=== PATIENT | male | born 2000 | race Caucasian/White ===

== ENCOUNTER 2022-08-29 23:15 | Emergency (ER) | payer BC, OTHER ==
[2022-08-30] MEDS ORDERED: KETOROLAC 30 MG/ML VIAL IVP STA (00:39)
[2022-08-30] MEDS ORDERED: LACTATED RINGERS 1,000 ML IV ONE (00:45)
[2022-08-30] MEDS ORDERED: ONDANSETRON 4 MG/2 ML (SDV) Z0FRAN IVP ONE (00:45)
[2022-08-30 00:49] LABS: BASOPHILS % (AUTO) 0 % (0-10); EOSINOPHILS % (AUTO) 0 % (0-10); HEMATOCRIT 45 % (40-54); HEMOGLOBIN 15.3 g/dL (13.3-17.7); LYMPHOCYTES # (AUTO) 0.6 10^3/uL (1.0-4.0); LYMPHOCYTES % (AUTO) 4 % (12-44); MEAN CORPUSCULAR HEMOGLOBIN 29 pg (25-34); MEAN CORPUSCULAR HGB CONC 34 g/dL (32-36); MEAN CORPUSCULAR VOLUME 84 fL (80-99); MEAN PLATELET VOLUME 10.5 fL (9.0-12.2); MONOCYTES # (AUTO) 0.4 10^3/uL (0.0-1.0); MONOCYTES % (AUTO) 3 % (0-12); NEUTROPHILS # (AUTO) 12.2 10^3/uL (1.8-7.8); NEUTROPHILS % (AUTO) 93 % (42-75); PLATELET COUNT 230 10^3/uL (130-400); WHITE BLOOD COUNT 13.1 10^3/uL (4.3-11.0)
[2022-08-30 00:57] LABS: BILIRUBIN,URINE NEGATIVE (NEGATIVE); CLARITY,URINE CLEAR; COLOR,URINE YELLOW; GLUCOSE, URINE (UA) NEGATIVE (NEGATIVE); KETONES,URINE 2+ (NEGATIVE); LEUKOCYTE ESTERASE ,URINE NEGATIVE (NEGATIVE); NITRITE,URINE NEGATIVE (NEGATIVE); PROTEIN,URINE 1+ (NEGATIVE)
[2022-08-30 01:00] LABS: CHLORIDE 104 MMOL/L (98-107); SODIUM 137 MMOL/L (135-145)
[2022-08-30 01:01] LABS: AMYLASE 47 U/L (25-125)
[2022-08-30 01:02] LABS: CALCIUM 9.5 MG/DL (8.5-10.1)
[2022-08-30 01:03] LABS: GLUCOSE 126 MG/DL (70-105)
[2022-08-30 01:04] LABS: CARBON DIOXIDE 19 MMOL/L (21-32)
[2022-08-30 01:05] LABS: BILIRUBIN,TOTAL 0.5 MG/DL (0.1-1.0)
[2022-08-30 01:06] LABS: ALKALINE PHOSPHATASE 75 U/L (40-136); CREATININE SERUM 1.12 MG/DL (0.60-1.30); GFR ESTIMATED 95
[2022-08-30 01:07] LABS: BUN/CREATININE RATIO 18
[2022-08-30 01:09] LABS: ALANINE AMINOTRANSFERASE 38 U/L (0-55)
[2022-08-30 01:10] LABS: LIPASE 23 U/L (8-78)
[2022-08-30 01:11] LABS: AMPHETAMINE SCREEN, URINE NEGATIVE (NEGATIVE); BARBITURATE SCREEN URINE NEGATIVE (NEGATIVE); BENZODIAZEPINES SCREEN URINE NEGATIVE (NEGATIVE); CANNABINOID SCREEN, URINE NEGATIVE (NEGATIVE); COCAINE SCREEN URINE NEGATIVE (NEGATIVE); METHADONE STAT NEGATIVE (NEGATIVE); OPIATE SCREEN URINE NEGATIVE (NEGATIVE); OXYCODONE STAT NEGATIVE (NEGATIVE); PROPOXYPHENE STAT NEGATIVE (NEGATIVE); TRICYCLIC ANTIDEPRESSANTS SCRE NEGATIVE (NEGATIVE)
[2022-08-30 01:37] LABS: BACTERIA,URINE NEGATIVE /HPF
[2022-08-30 01:41] LABS: LYMPHOCYTES % (MANUAL) 7 %; MONOCYTES % (MANUAL) 1 %; NEUTROPHILS % (MANUAL) 92 %; RBC MORPH NORMAL
[2022-08-30] MEDS ORDERED: RX-ONDANSETRON 4 MG ODT (ZOFRAN) PPK #4 PO STA (02:38)
--- NOTE | 2022-08-30 02:43 | ED GU-Male ---
General Chief Complaint: - Reproductive Stated Complaint: LEFT SIDE PAIN/VOMITING Nursing Triage Note: PT AMB TO [facility] 2 WITH CC OF L FLANK PAIN THAT BEGAN AROUND 1700 TODAY. PT STATES HAS HAD TROUBLE URINATING SINCE. Source: patient History of Present Illness Date Seen by Provider: Aug 30, 2022 Allergies and Home Medications Allergies Coded Allergies: No Known Drug Allergies (Unverified , 08/30/22) Past Hcussys-Ugjprz-Ydxnpp Hx Patient Social History Tobacco Use?: No Substance use?: No Alcohol Use?: Yes Alcohol Frequency: Once in a while Pt feels they are or have been: No Physical Exam Vital Signs Vital Signs - First Documented 08/30/22 00:29 Pulse 90 Resp 18 B/P (MAP) 146/98 (114) Pulse Ox 98 O2 Delivery Room Air Capillary Refill : Less Than 3 Seconds Height, Weight, BMI Height: '" Weight: lbs. oz. kg; BMI Method: Progress/Results/Core Measures Suspected Sepsis SIRS Temperature: Pulse: 90 Respiratory Rate: 18 Laboratory Tests 08/30/22 00:36: White Blood Count 13.1H Blood Pressure 146 /98 Mean: 114 Laboratory Tests 08/30/22 00:36: Creatinine 1.12, Platelet Count 230, Total Bilirubin 0.5 Results/Orders Lab Results Laboratory Tests Test 08/30/22 00:36 08/30/22 00:38 Range/Units White Blood Count 13.1 H 4.3-11.0 10^3/uL Red Blood Count 5.32 4.30-5.52 10^6/uL Hemoglobin 15.3 13.3-17.7 g/dL Hematocrit 45 40-54 % Mean Corpuscular Volume 84 80-99 fL Mean Corpuscular Hemoglobin 29 25-34 pg Mean Corpuscular Hemoglobin Concent 34 32-36 g/dL Red Cell Distribution Width 13.4 10.0-14.5 % Platelet Count 230 130-400 10^3/uL Mean Platelet Volume 10.5 9.0-12.2 fL Immature Granulocyte % (Auto) 0 % Neutrophils (%) (Auto) 93 H 42-75 % Lymphocytes (%) (Auto) 4 L 12-44 % Monocytes (%) (Auto) 3 0-12 % Eosinophils (%) (Auto) 0 0-10 % Basophils (%) (Auto) 0 0-10 % Neutrophils # (Auto) 12.2 H 1.8-7.8 10^3/uL Lymphocytes # (Auto) 0.6 L 1.0-4.0 10^3/uL Monocytes # (Auto) 0.4 0.0-1.0 10^3/uL Eosinophils # (Auto) 0.0 0.0-0.3 10^3/uL Basophils # (Auto) 0.0 0.0-0.1 10^3/uL Immature Granulocyte # (Auto) 0.0 0.0-0.1 10^3/uL Neutrophils % (Manual) 92 % Lymphocytes % (Manual) 7 % Monocytes % (Manual) 1 % Blood Morphology Comment NORMAL Sodium Level 137 135-145 MMOL/L Potassium Level 4.0 3.6-5.0 MMOL/L Chloride Level 104 98-107 MMOL/L Carbon Dioxide Level 19 L 21-32 MMOL/L Anion Gap 14 5-14 MMOL/L Blood Urea Nitrogen 20 H 7-18 MG/DL Creatinine 1.12 0.60-1.30 MG/DL Estimat Glomerular Filtration Rate 95 BUN/Creatinine Ratio 18 Glucose Level 126 H 70-105 MG/DL Calcium Level 9.5 8.5-10.1 MG/DL Corrected Calcium 8.5-10.1 MG/DL Total Bilirubin 0.5 0.1-1.0 MG/DL Aspartate Amino Transf (AST/SGOT) 37 H 5-34 U/L Alanine Aminotransferase (ALT/SGPT) 38 0-55 U/L Alkaline Phosphatase 75 40-136 U/L Total Protein 8.0 6.4-8.2 GM/DL Albumin 5.0 H 3.2-4.5 GM/DL Amylase Level 47 25-125 U/L Lipase 23 8-78 U/L Serum Alcohol < 10 <10 MG/DL Urine Color YELLOW Urine Clarity CLEAR Urine pH 6.0 5-9 Urine Specific [place] >=1.030 1.016-1.022 Urine Protein 1+ H NEGATIVE Urine Glucose (UA) NEGATIVE NEGATIVE Urine Ketones 2+ H NEGATIVE Urine Nitrite NEGATIVE NEGATIVE Urine Bilirubin NEGATIVE NEGATIVE Urine Urobilinogen 0.2 < = 1.0 MG/DL Urine Leukocyte Esterase NEGATIVE NEGATIVE Urine RBC (Auto) 3+ H NEGATIVE Urine RBC 2-5 H /HPF Urine WBC NONE /HPF Urine Crystals NONE /LPF Urine Bacteria NEGATIVE /HPF Urine Casts NONE /LPF Urine Mucus SMALL H /LPF Urine Culture Indicated NO Urine Opiates Screen NEGATIVE NEGATIVE Urine Oxycodone Screen NEGATIVE NEGATIVE Urine Methadone Screen NEGATIVE NEGATIVE Urine Propoxyphene Screen NEGATIVE NEGATIVE Urine Barbiturates Screen NEGATIVE NEGATIVE Ur Tricyclic Antidepressants Screen NEGATIVE NEGATIVE Urine Phencyclidine Screen NEGATIVE NEGATIVE Urine Amphetamines Screen NEGATIVE NEGATIVE Urine Methamphetamines Screen NEGATIVE NEGATIVE Urine Benzodiazepines Screen NEGATIVE NEGATIVE Urine Cocaine Screen NEGATIVE NEGATIVE Urine Cannabinoids Screen NEGATIVE NEGATIVE My Orders Orders - SHIRIN GOODMAN DO Ed Iv/Invasive Line Start (08/30/22 00:30) Monitor-Rhythm Ecg Trace Only (08/30/22 00:30) Alcohol (08/30/22 00:30) Amylase (08/30/22 00:30) Cbc With Automated Diff (08/30/22 00:30) Comprehensive Metabolic Panel (08/30/22 00:30) Drug Screen Stat (Urine) (08/30/22 00:30) Lipase (08/30/22 00:30) Ua Culture If Indicated (08/30/22 00:30) Ct Abd/Pelvis Wo(Kidney Stone) (08/30/22 00:39) Abdomen/Kub 1view (08/30/22 00:39) Ed Iv/Invasive Line Start (08/30/22 00:39) Lactated Ringers (Lr 1000 Ml Iv Solution (08/30/22 00:45) Ketorolac Injection (Toradol Injection) (08/30/22 00:39) Ondansetron Injection (Zofran Injectio (08/30/22 00:45) Manual Differential (08/30/22 00:36) Tamsulosin Capsule (Flomax Capsule) (08/30/22 02:45) Rx-Hydrocodone/Apap 5-325 Mg (Rx-Vicodin (08/30/22 02:45) Rx-Ondansetron Po (Rx-Zofran Po) (08/30/22 02:38) Medications Given in ED Current Medications Medications Dose Ordered Sig/Rob Route Start Time Stop Time Status Last Admin Dose Admin Lactated Ringer's 1,000 ml @ 0 mls/hr Q0M ONCE IV 08/30/22 00:45 08/30/22 00:46 DC 08/30/22 00:51 1,000 MLS/HR Ondansetron HCl 4 mg ONCE ONCE IVP 08/30/22 00:45 08/30/22 00:46 DC 08/30/22 00:50 4 MG Vital Signs/I&O 08/30/22 00:29 Pulse 90 Resp 18 B/P (MAP) 146/98 (114) Pulse Ox 98 O2 Delivery Room Air Capillary Refill : Less Than 3 Seconds Blood Pressure Mean: 114 Departure Impression Primary Impression: Calculus of distal left ureter Disposition: HOME, SELF-CARE Condition: Improved Departure-Patient Inst. Decision time for Depature: 02:40 Referrals: [facility] (PCP/Family) Primary Care Physician Patient Instructions: Kidney Stone, Adult ED, Kidney Stone Diet, How to Strain Your Urine Add. Discharge Instructions: HOME, REST LOTS OF CLEAR LIQUIDS STRAIN ALL URINE--RETURN ANY STONES TO DR'S OFFICE FOLLOW UP WITH UROLOGIST OF CHOICE THIS WEEK FOR FURTHER CARE--YOU MAY CALL [facility], OR [facility] OR [facility] IN [place] CALL TODAY TO MAKE AN APPOINTMENT. RETURN TO ER IF YOUR SYMPTOMS WORSEN All discharge instructions reviewed with patient and/or family. Voiced understanding. SHIRIN GOODMAN DO Aug 30, 2022 02:43
[2022-08-30] MEDS ORDERED: ONDA4TAB11 PO (02:44)
[2022-08-30] MEDS ORDERED: TMSL.4C PO (02:44)
[2022-08-30] MEDS ORDERED: HYDR-4085 PO (02:44)
[2022-08-30] MEDS ORDERED: TAMSULOSIN 0.4 MG (FLOMAX) CAP PO SCH (02:45)
[2022-08-30 02:57] VITALS: BP 128/89
--- NOTE | 2022-08-30 07:31 | Diagnostic Imaging Report ---
PROCEDURE: CT urinary tract, rule out kidney stone. TECHNIQUE: Multiple contiguous axial images were obtained through the abdomen and pelvis without the use of intravenous contrast. Auto Exposure Controls were utilized during the CT exam to meet ALARA standards for radiation dose reduction. INDICATION: Abdominal pain. COMPARISON: None. FINDINGS: The heart is unremarkable. The lung bases are clear. A calculus is seen in the left UVJ/bladder lumen measuring 2 mm with mild left-sided hydroureteronephrosis. The liver, spleen, pancreas, and adrenal glands have a normal noncontrast CT appearance. The gallbladder is unremarkable. There is no pathologically enlarged mesenteric or retroperitoneal adenopathy. The bowel loops are nondilated. The appendix is visualized in the right lower quadrant and has a normal appearance. There is no free fluid or free air. No acute osseous abnormalities. There is no free air, loculated collection, or adenopathy in the pelvis. IMPRESSION: 1. 2 mm calculus in the left UVJ/bladder lumen with mild left-sided hydroureteronephrosis. Agree with overnight report. Dictated by: Dictated on workstation # [id number]
--- NOTE | 2022-08-30 08:17 | Diagnostic Imaging Report ---
REASON FOR EXAM: Abdominal pain. COMPARISON: None TECHNIQUE: frontal supine view of the abdomen FINDINGS: The bowel gas pattern is nondistended. No large collection of free intraperitoneal air is seen. Scattered small amounts of gas and fecal material are present in the colon. No abnormal extraosseous calcifications are present. The osseous structures are age-appropriate. IMPRESSION: No evidence of bowel obstruction or large collection of free intraperitoneal air. Dictated by: Dictated on workstation # [id number]
== END 2022-08-30 02:57 | disposition home or self-care (01) ==
LOC: ER 23:17
DX: N13.2 Hydronephrosis with renal and ureteral calculous obstruction (principal)
CPT/HCPCS: 74018; 74176; 80053; 80306; 81000; 82150; 83690; 85007; 85027; 99284; G0480; 36415; 80320